=== PATIENT | female | born 1965 | race Hispanic/Latino ===

== ENCOUNTER 2018-03-27 16:00 | Outpatient (CLI) | payer BC | END 2018-03-27 16:01 | disposition home or self-care (01) | LOC: BICMAMMO 16:00 | PROVIDERS: ATTEND Obstetrics & Gynecology | DX: Z12.31 Encounter for screening mammogram for malignant neoplasm of breast (principal); R92.1 Mammographic calcification found on diagnostic imaging of breast; Z80.3 Family history of malignant neoplasm of breast | CPT/HCPCS: 77063; 77067 ==

== ENCOUNTER 2019-03-22 15:11 | Outpatient (CLI) | payer BC ==
--- NOTE | 2019-03-22 15:31 | RAD ---
Exam: 2 views right calcaneus HISTORY: Pain. FINDINGS: Minimal spurring of the calcaneus at the plantar aponeurosis insertion site. IMPRESSION: Minimal spurring. No fracture.
== END 2019-03-22 15:12 | disposition home or self-care (01) ==
LOC: BICRAD 15:11
PROVIDERS: ATTEND Podiatrist
DX: M79.671 Pain in right foot (principal); M77.31 Calcaneal spur, right foot